=== PATIENT | female | born 1950 | race Caucasian/White ===

== ENCOUNTER 2021-03-29 06:22 | Day surgery (SDC) | payer MEDICARE, OTHER ==
[2021-03-29] MEDS ORDERED: Lactated Ringers 1,000 ML IV SCH (07:30)
[2021-03-29] MEDS ORDERED: Cyanocobalamin (Vitamin B12) 1,000 MCG/ML SDV IM ONE (07:30)
[2021-03-29] MEDS ORDERED: Midazolam 1 MG/ML 2 ML SDV ONE (08:15)
[2021-03-29] MEDS ORDERED: Propofol 200 MG/20 ML SDV ONE (08:15)
[2021-03-29] MEDS ORDERED: fentaNYL 100 MCG/2 ML SDV ONE (08:15)
[2021-03-29] MEDS ORDERED: Glycopyrrolate 0.2 MG/ML 2 ML SDV IVPUSH ONE (08:30)
--- NOTE | 2021-04-08 13:31 | OR ---
DATE OF PROCEDURE: 03/29/2021 SURGEON: Ko Barrios MD PREOPERATIVE DIAGNOSIS: Weight regain, status post Kerrie-en-Y gastric bypass. POSTOPERATIVE DIAGNOSES: Weight regain, status post Kerrie-en-Y gastric bypass related to: 1. Large gastric pouch and gastrojejunostomy. 2. Gastrogastric fistula. OPERATIVE PROCEDURE: Upper gastrointestinal endoscopy with biopsies of gastric pouch for CLOtest. ANESTHESIA: IV sedation. INDICATION FOR PROCEDURE: This is a 70-year-old, status post Kerrie-en-Y gastric bypass in 2002. Recently, she has had progressive problems with weight regain, and the plan is to proceed with upper endoscopy to evaluate the current anatomy and look for possible correctable problems with regard to Kerrie-en-Y anatomy. Potential risks of the procedure including bleeding and perforation were discussed, and the patient wishes to proceed. DETAILS OF PROCEDURE: The patient was taken to the operating room and placed in a left lateral decubitus position. IV sedation was administered, after which the upper GI endoscope was passed orally through the length of the esophagus into the gastric pouch and from there through the gastrojejunostomy roughly 20 cm into the Kerrie limb. Overall findings were consistent with the patient having normal esophagus and EG junction. The gastric pouch was quite large, measured around 10 cm from the gastrojejunostomy to the esophagogastric junction, and the gastrojejunostomy also quite wide measuring around 4 cm. Additionally, just at the area medially proximal to the gastrojejunostomy and gastrogastric fistula was visible through the bypassed stomach, this would not quite admit the gastroscope additionally would contribute to loss of function of the gastric bypass. Biopsies were then obtained from the gastric pouch and sent for CLOtest for H pylori. Minimal bleeding from the biopsy sites was seen, and the procedure was then concluded. The patient was taken to the recovery room in satisfactory condition. Ko Barrios MD /[id number]
== END 2021-03-29 11:25 | disposition home or self-care (01) ==
LOC: JP.SDS 06:22
PROVIDERS: ATTEND Surgery
DX: K31.6 Fistula of stomach and duodenum (principal); K31.4 Gastric diverticulum; Z88.0 Allergy status to penicillin; Z88.2 Allergy status to sulfonamides; Z88.8 Allergy status to other drugs, medicaments and biological substances; Z98.84 Bariatric surgery status
CPT/HCPCS: 43239; 87081; J2250; J2704; J3010; J3420; J3490; J7120

== ENCOUNTER 2021-05-16 07:24 | Inpatient (IN) | payer MEDICARE, OTHER ==
[~2021-05-16 07:24] MED LIST: cefOXitin 2 GM Vial ONE
[2021-05-16] MEDS ORDERED: Scopolamine 1.5 MG Transdermal Patch TOP ONE (08:00)
[2021-05-16] MEDS ORDERED: Acetaminophen 500 MG Tab PO ONE (08:00)
[2021-05-16] MEDS ORDERED: Gabapentin 300 MG Cap PO ONE (08:00)
[2021-05-16] MEDS ORDERED: fentaNYL 250 MCG/5 ML SDV ONE ×2 (08:15→10:14)
[2021-05-16] MEDS ORDERED: Rocuronium 50 MG/5 ML Vial ONE ×2 (08:16→11:00)
[2021-05-16] MEDS ORDERED: Dexamethasone 4 MG/ML SDV ONE (08:16)
[2021-05-16] MEDS ORDERED: Neostigmine Methylsulfate 1 MG/ML 5 ML Syringe ONE (08:16)
[2021-05-16] MEDS ORDERED: Ondansetron 4 MG/2 ML SDV ONE (08:16)
[2021-05-16] MEDS ORDERED: Propofol 200 MG/20 ML SDV ONE (08:16)
[2021-05-16] MEDS ORDERED: Glycopyrrolate 0.2 MG/ML 5 ML MDV ONE (08:16)
[2021-05-16] MEDS ORDERED: Succinylcholine 200 MG/10 ML MDV ONE (08:16)
[2021-05-16] MEDS ORDERED: Ketamine 500 MG/5 ML MDV IV SCH (09:00)
[2021-05-16] MEDS ORDERED: Magnesium Sulfate 2.7 GM in Sodium Chloride 0.9% 100 ML IV SCH (09:00)
[2021-05-16] MEDS ORDERED: Magnesium Sulfate 2.9 GM in Sodium Chloride 0.9% 250 ML IV ONE (09:00)
[2021-05-16] MEDS ORDERED: Dextrose 5%-Lactated Ringers 1,000 ML IV SCH ×2 (09:00→13:45)
[2021-05-16] MEDS ORDERED: Ketamine 17 MG in Sodium Chloride 0.9% 19.83 ML IV SCH (09:00)
[2021-05-16] MEDS ORDERED: cefOXitin 2 GM in Sodium Chloride 0.9% 50 ML IV ONE (09:45)
[2021-05-16] MEDS ORDERED: Naloxone 0.4 MG/ML SDV IVPUSH PRN (10:35)
[2021-05-16] MEDS ORDERED: Lactated Ringers 1,000 ML ONE (11:20)
[2021-05-16] MEDS ORDERED: Ondansetron 4 MG/2 ML SDV IVPUSH ONE (11:59)
[2021-05-16] MEDS: HYDROmorphone/Normal Saline 15 MG/30 ML PCA IV PRN (12:05)
[2021-05-16] MEDS ORDERED: Cyclobenzaprine 10 MG Tab PO PRN (13:41)
[2021-05-16] MEDS ORDERED: hydrOXYzine HCL 100 MG/2 ML SDV IM PRN (14:00)
[2021-05-16] MEDS ORDERED: diphenhydrAMINE 50 MG/ML SDV IVPUSH PRN (14:00)
[2021-05-16] MEDS ORDERED: Acetaminophen 500 MG Tab PO PRN (14:00)
[2021-05-16] MEDS ORDERED: Labetalol 20 MG/4 ML Syringe IVPUSH PRN (14:00)
[2021-05-16] MEDS ORDERED: Ondansetron 4 MG/2 ML SDV IVPUSH PRN (14:00)
[2021-05-16] MEDS ORDERED: Calcium Gluconate 10% 1 GM/10 ML SDV IVPUSH PRN (14:00)
[2021-05-16] MEDS ORDERED: Metoclopramide 10 MG/2 ML SDV IVPUSH PRN (14:00)
[2021-05-16] MEDS ORDERED: Hypromellose 0.3% Ophth Soln 15 ML Bottle EYEBOTH PRN (14:01)
[2021-05-16] MEDS ORDERED: SUMAtriptan 50 MG Tab PO PRN (14:09)
[2021-05-16] MEDS ORDERED: Ketotifen 0.025% Ophth Soln 5 ML Bottle EYEBOTH PRN (14:11)
[2021-05-16] MEDS: Acetaminophen 500 MG Tab PO SCH ×2 (15:10→21:18)
[2021-05-16] MEDS: Gabapentin 300 MG Cap PO SCH ×2 (15:10→21:16)
[2021-05-16] MEDS ORDERED: Pantoprazole 40 MG Vial IVPUSH SCH (16:00)
[2021-05-16] MEDS ORDERED: MVI, Adult with Vitamin K 10 ML, Thiamine 200 MG, Zinc/Copper/Manganese/Selenium 1 ML i... IV SCH ×4 (16:00)
[2021-05-16] MEDS: cefOXitin 2 GM in Sodium Chloride 0.9% 50 ML IV SCH ×2 (16:36→22:42)
[2021-05-16] MEDS: Heparin Sodium 5,000 Units/ML Vial SUBCUT SCH (21:16)
[2021-05-16] MEDS: Propranolol 40 MG Tab PO SCH (21:17)
[2021-05-16] MEDS: Celecoxib 200 MG Cap PO SCH (21:17)
[2021-05-17] MEDS ORDERED: Iopamidol 612 MG/ML 50 ML SDV PO STA (03:44)
[2021-05-17] MEDS: cefOXitin 2 GM in Sodium Chloride 0.9% 50 ML IV SCH ×4 (03:49→21:53)
[2021-05-17] MEDS: Acetaminophen 500 MG Tab PO SCH ×3 (06:09→21:53)
[2021-05-17] MEDS: ARIPiprazole 10 MG Tab PO SCH (09:24)
[2021-05-17] MEDS: DULoxetine 30 MG Cap PO SCH (09:25)
[2021-05-17] MEDS: Celecoxib 200 MG Cap PO SCH ×2 (09:25→20:07)
[2021-05-17] MEDS: Heparin Sodium 5,000 Units/ML Vial SUBCUT SCH ×2 (09:26→20:07)
[2021-05-17] MEDS: Propranolol 40 MG Tab PO SCH ×2 (09:27→20:09)
[2021-05-17] MEDS: Gabapentin 300 MG Cap PO SCH ×3 (09:28→20:09)
--- NOTE | 2021-05-17 09:33 | CR ---
UGI Limited HISTORY: Postbariatric surgery FINDINGS: Patient swallowed water-soluble contrast. Upright views of the abdomen show no evidence of extravasation or obstruction. There is a surgical drain in the left upper quadrant IMPRESSION: Status post bariatric surgery No extravasation or obstruction seen
[2021-05-17] MEDS: SCOPOLAMINE PATCH CHECK TOP SCH (10:14)
[2021-05-17] MEDS: Dextrose 5%-Lactated Ringers 1,000 ML IV SCH (11:33)
[2021-05-17] MEDS: HYDROmorphone/Normal Saline 15 MG/30 ML PCA IV PRN (14:34)
[2021-05-17] MEDS ORDERED: MVI, Adult with Vitamin K 10 ML, Thiamine 200 MG, Zinc/Copper/Manganese/Selenium 1 ML i... IV SCH ×4 (16:00)
[2021-05-17] MEDS: Pantoprazole 40 MG Delayed-Release Granules 1 Packet PO SCH (16:26)
[2021-05-18] MEDS: Dextrose 5%-Lactated Ringers 1,000 ML IV SCH (03:33)
[2021-05-18] MEDS: cefOXitin 2 GM in Sodium Chloride 0.9% 50 ML IV SCH ×2 (04:04→09:43)
[2021-05-18] MEDS: Acetaminophen 500 MG Tab PO SCH ×3 (06:35→23:03)
[2021-05-18] MEDS ORDERED: Magnesium Hydroxide 400 MG/5 ML Susp 30 ML Cup PO PRN (07:38)
[2021-05-18] MEDS: HYDROmorphone 2 MG Tab PO PRN ×4 (08:32→23:02)
[2021-05-18] MEDS ORDERED: Cyanocobalamin (Vitamin B12) 1,000 MCG/ML SDV IM ONE (09:00)
[2021-05-18] MEDS: ARIPiprazole 10 MG Tab PO SCH (09:33)
[2021-05-18] MEDS: DULoxetine 30 MG Cap PO SCH (09:34)
[2021-05-18] MEDS: Bisacodyl 5 MG Tab PO SCH ×2 (09:34→20:03)
[2021-05-18] MEDS: Celecoxib 200 MG Cap PO SCH ×2 (09:34→20:02)
[2021-05-18] MEDS: Docusate Sodium 100 MG Cap PO SCH ×2 (09:34→20:02)
[2021-05-18] MEDS: Heparin Sodium 5,000 Units/ML Vial SUBCUT SCH ×2 (09:35→20:02)
[2021-05-18] MEDS: Propranolol 40 MG Tab PO SCH ×2 (09:35→20:02)
[2021-05-18] MEDS: Gabapentin 300 MG Cap PO SCH ×3 (09:36→20:02)
[2021-05-18] MEDS: SCOPOLAMINE PATCH CHECK TOP SCH (10:21)
[2021-05-18] MEDS ORDERED: Magnesium Hydroxide 400 MG/5 ML Susp 30 ML Cup PO ONE (12:00)
[2021-05-18] MEDS: Pantoprazole 40 MG Delayed-Release Granules 1 Packet PO SCH (15:46)
[2021-05-19] MEDS: Acetaminophen 500 MG Tab PO SCH (06:19)
[2021-05-19] MEDS: HYDROmorphone 2 MG Tab PO PRN (07:30)
[2021-05-19] MEDS: Bisacodyl 5 MG Tab PO SCH (08:29)
[2021-05-19] MEDS: Docusate Sodium 100 MG Cap PO SCH (08:29)
[2021-05-19] MEDS: Propranolol 40 MG Tab PO SCH (08:30)
[2021-05-19] MEDS: DULoxetine 30 MG Cap PO SCH (08:30)
[2021-05-19] MEDS: Celecoxib 200 MG Cap PO SCH (08:30)
[2021-05-19] MEDS: Gabapentin 300 MG Cap PO SCH (08:30)
[2021-05-19] MEDS: Heparin Sodium 5,000 Units/ML Vial SUBCUT SCH (08:30)
[2021-05-19] MEDS: ARIPiprazole 10 MG Tab PO SCH (08:30)
[2021-05-19] MEDS ORDERED: Magnesium Hydroxide 400 MG/5 ML Susp 30 ML Cup PO ONE (09:00)
--- NOTE | 2021-05-20 17:53 | PCM.EKG ---
#1 Interpretation EKG Date: 05/16/21 Time: 08:07 Rhythm: NSR Rate (Beats/Min): 67 [place]: Normal P-Wave: Present QRS: Normal ST-T: Normal QT: Normal CT/PQ Interval: normal Comparison: NA - No Prior EKG EKG Interpretation Comments: R-S transition between V5 and V6
--- NOTE | 2021-05-21 07:30 | PN ---
DATE OF SERVICE: 05/17/2021 The patient is postop day 1 from an open revision of Kerrie-en-Y gastric bypass along with closure of gastrogastric fistula. Postoperatively, she has had no major problems. Upper GI x-ray looks good this morning, and we will go up to step 2 diet. With the open incision, we will continue the INSTRUMENT TECHNICIAN for today, probably switching over to oral pain medication tomorrow. Otherwise, maximize activity and work with pulmonary toilet. Ko Barrios MD /[id number]
--- NOTE | 2021-05-21 08:15 | PN ---
DATE OF SERVICE: 05/18/2021 The patient has been afebrile with stable vital signs. Oral intake has been fair. We will switch her to oral pain medication today and begin some bowel stimulation and she may be ready for discharge home tomorrow. Ko Barrios MD /[id number]
--- NOTE | 2021-05-21 10:06 | DISCH ---
FINAL DIAGNOSES: 1. Weight regain secondary to enlargement of gastric pouch and gastrojejunostomy. 2. Gastrogastric fistula. 3. Segment of small bowel ischemic adjacent to gastrojejunostomy status post takedown of gastrogastric fistula. 4. Incarcerated incisional hernia. 5. Bariatric surgery status. 6. History of anxiety and depression. 7. 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 OPERATIVE PROCEDURES: Done on 05/16, diagnostic laparoscopy converted to laparotomy with: 1. Revision of Kerrie-en-Y gastric bypass. 2. Closure of gastrogastric fistula. 3. Small bowel resection. 4. Repair of incarcerated incisional hernia. 5. Placement of Interceed mesh x2. SUMMARY: This is a 70-year-old female presenting with significant weight regain, recent upper endoscopy showed gastrogastric fistula along with marked enlargement of gastric pouch and gastrojejunostomy. After preoperative evaluation and discussion, she wished to proceed with a revisional procedure. After initial diagnostic laparoscopy, she was converted to open laparotomy due to the fistula being identified as being adjacent to and probably somewhat adherent to the aorta. The patient underwent a revision of the Kerrie-en-Y gastric bypass, creating a small pouch, gastrojejunostomy, along with closure of the gastrogastric fistula. She was noted to have some ischemic small bowel status post takedown of the gastrogastric fistula, which was resected and midportion of the upper midline area. Postoperatively, the patient has done well. At this point, she will be sent home on a step 2 diet to be continued until her first appointment, which will be with Ragini Zaldivar at [facility] on 05/27/2021. Medications will be same as preoperatively other than she will be discharged with Dilaudid 2 mg q.6 hours p.r.n., #12, and then Tylenol 1 g q.6 hours p.r.n. /[id number]
--- NOTE | 2021-05-31 14:58 | OR ---
DATE OF PROCEDURE: 05/16/2021 SURGEON: Ko Barrios MD PREOPERATIVE DIAGNOSES: 1. Weight regain secondary to enlargement of gastric pouch and gastrojejunostomy. 2. Gastrogastric fistula. 3. Segment of small bowel ischemic, adjacent to gastrojejunostomy, status post takedown of gastrogastric fistula. 4. Incarcerated incisional (trocar site) hernia. OPERATIVE PROCEDURE: Diagnostic laparoscopy converted to laparotomy with: 1. Revision of Kerrie-en-Y gastric bypass (22453). 2. Closure of gastrogastric fistula (61168). 3. Small bowel resection (84044). 4. Repair of incarcerated incisional hernia (84931). 5. Placement of Interceed mesh x2 to limit recurrent adhesion formation between pelvic and abdominal wall and underlying viscera (10900). ANESTHESIA: General. WOOL BATTING WORKER: Ragini Zaldivar PA-C INDICATIONS FOR PROCEDURE: A 70-year-old female presenting with substantial weight regain, status post previous Kerrie-en-Y gastric bypass. The patient had an upper endoscopy and noted to have an enlarged gastric pouch and gastrojejunostomy. Plan will be proceed with reduction of size of those structures as well as revision of the small bowel anatomy so as to facilitate additional weight loss. The patient also has a gastrogastric fistula presumably related to previous perforation of marginal ulcer and that will be taken down as well. Potential risks of the procedure including bleeding, infection, injury to underlying viscera, leaks from GI tract closures as well as possibility of cardiopulmonary, septic, or hemorrhagic complications leading to were discussed, and the patient wishes to proceed. DETAILS OF PROCEDURE: The patient was taken to the operating room, and after general endotracheal anesthesia was induced, Guerrero catheter was inserted. The patient was placed in a lithotomy position, and initially, a transverse incision was made 15 cm inferior and 5 cm left of the xiphoid process, and the peritoneal cavity entered under direct vision with an Optiview trocar. One additional 5 mm trocar was placed in the right subcostal area. The liver was retracted anteriorly, and the patient was noted to have extremely florid adhesions between the liver, gastric pouch, and area of the gastrojejunostomy presumably related to the previous inflammatory process resulting in fistula formation and the presence of the fistula being in a posterior location more or less adjacent to the aorta, led to the decision to proceed with an open approach. The trocars were removed and the peritoneal cavity deflated. An upper midline incision was made from the xiphoid to just above the umbilicus. This was carried down through the skin and subcutaneous tissue. Upon dissection through that area, the patient was noted to have a trocar site hernia. This was excised flush with the fascia. The peritoneal cavity was then entered and general exploration was undertaken. The above adhesions were then once again identified. These were sequentially taken down with combination of lola, electrocautery, and blunt dissection. Eventually, the area of the gastric pouch was able to be identified, and an Richy tube was then placed orally per Anesthesia across the area of the gastric pouch and into the pre-existing Kerrie limb. This then allowed further dissection behind the stomach and the area of the gastric fistula was then divided flush with the bypassed portion of the stomach. The gastric pouch was then further mobilized upward and this area was then resected with a WILMA black load flush with the Richy tube, thus creating a much smaller gastric pouch. The gastrojejunostomy was also then revised. With dissection of this area, a segment of the small bowel was found to be ischemic and was resected, and the gastrojejunostomy then completed with some 3-0 Vicryl full-thickness sutures followed by seromuscular sutures with the Richy tube being in place. At that point, this portion of the procedure appeared to be satisfactorily completed. The small bowel was then identified. As expected, there were significant adhesions present, and after these were taken down, the patient was noted to have quite short biliopancreatic limb and Kerrie limb then of 150 cm. The small bowel was then divided at the point where the Kerrie limb entered. The jejunojejunostomy portion of small bowel was then resected leaving the patient again with roughly 140 to 150 cm of Kerrie limb. The common limb was then re- established at a point 250 cm proximal to the ileocecal valve. The end of the Kerrie limb was then anastomosed to the bowel at that level with internal firing of the WILMA 60 mm stapler. Common opening was then closed transversely with the same stapler. The angles of anastomosis were then reinforced with some 3-0 Vicryl stitch, and the mesenteric defect closed with a 2-0 Vicryl stitch. Of note, at this point, the biliopancreatic limb was 350 cm which should provide the patient significant amount of weight loss as well as improvement in metabolic status with that elongated biliopancreatic limb. At this point, no further problems were noted. Ha-Anaya drain was taken out through the left subcostal trocar site and placed adjacent to the newly formed gastric pouch and gastrojejunostomy. That area was then reinforced with some fibrin sealant as well, and at that point, the midline fascia was approximated with #2 Vicryl stitch which included repair of the incisional hernia. The subcutaneous tissues were approximated with 2 layers of 3-0 and 4-0 Vicryl stitch and skin with lola. Prior to closure, bilateral transversus abdominis plane blocks were then placed, and the patient was taken to the recovery room in satisfactory condition. Physician rehabilitation assistant, Ragini Zaldivar, played an essential role in assisting in this case, helping to position the patient, retract structures as needed, as well as suturing and cutting sutures when indicated. Her presence improved patient safety and decreased the operative time. Ko Barrios MD /[id number]
== END 2021-05-19 10:25 | disposition home or self-care (01) | DRG 327 ==
LOC: JP.SDS 07:24 → EDSTATUS 10:15 → JP.MS 11:40
PROVIDERS: ADMIT Surgery; ATTEND Surgery
PROC: 0DB60ZZ Excision of Stomach, Open Approach (ICD-10-PCS; principal; 2021-05-16)
PROC: 0DB80ZZ Excision of Small Intestine, Open Approach (ICD-10-PCS; 2021-05-16)
PROC: 0DB80ZZ Excision of Small Intestine, Open Approach (ICD-10-PCS; 2021-05-16)
PROC: 0WQF0ZZ Repair Abdominal Wall, Open Approach (ICD-10-PCS; 2021-05-16)
PROC: 0DJ04ZZ Inspection of Upper Intestinal Tract, Percutaneous Endoscopic Approach (ICD-10-PCS; 2021-05-16)
PROC: 0DQ80ZZ Repair Small Intestine, Open Approach (ICD-10-PCS; 2021-05-16)
PROC: 3E0M05Z Introduction of Adhesion Barrier into Peritoneal Cavity, Open Approach (ICD-10-PCS; 2021-05-16)
DX: K31.6 Fistula of stomach and duodenum (principal); K43.0 Incisional hernia with obstruction, without gangrene; K55.9 Vascular disorder of intestine, unspecified; F32.A Depression, unspecified; M81.0 Age-related osteoporosis without current pathological fracture; F41.9 Anxiety disorder, unspecified; R63.5 Abnormal weight gain; Z88.0 Allergy status to penicillin; Z85.42 Personal history of malignant neoplasm of other parts of uterus; Z88.2 Allergy status to sulfonamides; Z90.49 Acquired absence of other specified parts of digestive tract; Z90.710 Acquired absence of both cervix and uterus; Z68.32 Body mass index [BMI] 32.0-32.9, adult
CPT/HCPCS: 36415; 74240; 74240-26; 80053; 82728; 83735; 84100; 86850; 86900; 86901; 88302; 88307; 93005; 94762; A9270-GY; C9113; J0171; J0330; J0694; J1100; J1170; J1644; J2405; J2704; J2710; J2795; J3010; J3411; J3420; J3475; J3490; J7050; J7120; J7121; Q9967